=== PATIENT | female | born 1975 | race American Indian/Alaskan Native ===

== ENCOUNTER 2017-01-09 12:22 | Outpatient (CLI) | payer BC ==
--- NOTE | 2017-01-09 13:36 | XRay Report ---
LEFT FOREARM RADIOGRAPHS INDICATION: Left forearm pain. COMPARISON: 07/14/2008 right forearm views. FINDINGS: AP and lateral left forearm radiographs demonstrate normal bones and soft tissues. Included elbow and wrist articulations also appear grossly within normal limits. CONCLUSION: Normal exam. Thank you for the opportunity to participate in this patient's care.
== END 2017-01-09 12:23 | disposition home or self-care (01) ==
LOC: SPVIMAG 12:22
PROVIDERS: ATTEND Orthopaedic Surgery Sports Medicine
DX: M79.632 Pain in left forearm (principal)

== ENCOUNTER 2017-04-09 10:22 | Outpatient (CLI) | payer BC ==
--- NOTE | 2017-04-09 16:49 | Mammography Report ---
BILATERAL DIGITAL SCREENING MAMMOGRAM with CAD: 04/09/17 CLINICAL: Routine screening. COMPARISON:None available. However, a prior mammogram was apparently done [facility]. FINDINGS: The breasts are heterogeneously dense, which may obscure small masses. Bilateral asymmetries require comparison with a a prior mammogram or additional imaging.No architectural distortion or suspicious calcifications. IMPRESSION: Bilateral asymmetries requiring further evaluation. BI-RADS CATEGORY: 0 -- Additional Evaluation Required RECOMMENDATION: Comparison with a previous mammogram. We will attempt to obtain a prior mammogram for comparison. If we do not obtain a prior mammogram within 30 days, a revised report will be issued recommending a recall for additional imaging. Please be advised that the patient should not schedule an appointment for return until adequate time (at least 2 weeks) has passed for us to obtain the prior mammogram. ACR BI-RADS MAMMOGRAPHIC CODES: 0 = Needs additional imaging evaluation; 1 = Negative; 2 = Benign; 3 = Probably benign; 4 = Suspicious; 5 = Malignant; 6 = Known biopsy-proven malignancy COMMENT: 1. Dense breast tissue, i.e., adenosis, fibrocystic changes, etc., may obscure an underlying neoplasm. 2. Approximately 10% of cancers are not detected with mammography. 3. A negative mammography report should not delay biopsy if a clinically suspicious mass is present. COMMENT: Patient follow-up letters are generated via our [employer] application.
== END 2017-04-09 10:23 | disposition home or self-care (01) ==
LOC: SPVWC 10:22
PROVIDERS: ATTEND Internal Medicine
DX: Z12.31 Encounter for screening mammogram for malignant neoplasm of breast (principal)
CPT/HCPCS: 77067

== ENCOUNTER 2017-07-16 09:18 | Outpatient (CLI) | payer BC ==
--- NOTE | 2017-07-16 16:00 | Mammography Report ---
BILATERAL DIGITAL DIAGNOSTIC MAMMOGRAM and BILATERAL BREAST ULTRASOUND: 07/16/17 09:18:00 CLINICAL: Recalled for bilateral asymmetries. COMPARISON:04/09/17 screening FINDINGS: Bilateral spot compression views were performed and bilateral asymmetries persist. Ultrasound of the upper outer right breast was performed and demonstrated several benign cysts. The largest is at 10 o'clock 10 cm from the nipple and measures 1.0 x 0.5 x 0.8 cm. It correlates with the dominant mammographic asymmetry. A cyst at 10 o'clock 7 cm from nipple measures 5 x 3 x 4 mm and a cyst at 10 o'clock 5 cm from the nipple measures 0.9 x 0.5 x 0.7 cm. Benign cyst at 9 o'clock 8 cm from the nipple measure 4 x 4 by 4 mm and 5 x 4 x 5 mm. No solid mass or shadowing. Ultrasound of the upper left breast was performed and demonstrates several benign cysts. A cyst at 1 o'clock 7 cm from the nipple measures 1.0 x 0.9 x 0.7 cm and correlates with the partially circumscribed asymmetry on the mammogram. A cyst at 11 o'clock 6 cm from the nipple measures 1.0 x 0.7 x 1.0 cm. Several additional smaller cysts. No solid mass or shadowing. IMPRESSION: Bilateral benign cysts. BI-RADS CATEGORY: 2 - - Benign RECOMMENDATION: Routine mammographic screening in one year. ACR BI-RADS MAMMOGRAPHIC CODES: 0 = Needs additional imaging evaluation; 1 = Negative; 2 = Benign; 3 = Probably benign; 4 = Suspicious; 5 = Malignant; 6 = Known biopsy-proven malignancy COMMENT: 1. Dense breast tissue, i.e., adenosis, fibrocystic changes, etc., may obscure an underlying neoplasm. 2. Approximately 10% of cancers are not detected with mammography. 3. A negative mammography report should not delay biopsy if a clinically suspicious mass is present. COMMENT: Patient follow-up letters are generated via our [employer] application.
== END 2017-07-16 09:19 | disposition home or self-care (01) ==
LOC: SPVWC 09:18
PROVIDERS: ATTEND Nurse Practitioner
DX: N60.01 Solitary cyst of right breast (principal); N60.02 Solitary cyst of left breast; F17.210 Nicotine dependence, cigarettes, uncomplicated
CPT/HCPCS: 77066

== ENCOUNTER → 2017-07-16 | Outpatient (CLI) | payer BC | LOC: SLR 11:00 | PROVIDERS: ATTEND Otolaryngology | DX: G47.33 Obstructive sleep apnea (adult) (pediatric) (principal); F17.210 Nicotine dependence, cigarettes, uncomplicated; Z90.710 Acquired absence of both cervix and uterus | CPT/HCPCS: G0399 ==